=== PATIENT | female | born 1945 | race Caucasian/White ===

== ENCOUNTER 2018-06-16 19:10 | Emergency (ER) | payer MEDICARE, BC ==
[2018-06-16] MEDS ORDERED: Bacitracin Oint 1 GM U/D Packet TOP ONE (19:32)
[2018-06-16] MEDS ORDERED: Bacitracin Oint 1 GM U/D Packet ONE (19:34)
--- NOTE | 2018-06-16 20:41 | EDM.PDOC ---
ED HPI GENERAL MEDICAL PROBLEM - General Chief Complaint: ENT Problem Stated Complaint: BLOODY NOSE Time Seen by Provider: 06/16/18 19:25 Source of Information: Reports: Patient, RN Notes Reviewed History Limitations: Reports: No Limitations - History of Present Illness INITIAL COMMENTS - FREE TEXT/NARRATIVE: Brought by her Chief complaint Left-sided nosebleed History of present illness 72-year-old female on Coumadin for pulmonary embolism Left-sided nosebleed for several hours Unable to control at home - Related Data Allergies Allergy/AdvReac Type Severity Reaction Status Date / Time codeine Allergy Chest Pain Verified 06/16/18 20:26 nitrofurantoin Allergy Hives Verified 06/16/18 20:26 [From Macrodantin] Sulfa (Sulfonamide Allergy Hives Verified 06/16/18 20:26 Antibiotics) Past Medical History HEENT History: Reports: Cataract, Glaucoma, Retinal Detachment Cardiovascular History: Reports: High Cholesterol, Hypertension Respiratory History: Reports: Asthma, COPD Gastrointestinal History: Reports: GERD Genitourinary History: Reports: Chronic Renal Insuffiency [employer] History: Reports: Musculoskeletal History: Reports: Arthritis, Osteoarthritis Psychiatric History: Reports: Anxiety, Depression Endocrine/Metabolic History: Reports: Other (See Below) Other Endocrine/Metabolic History: graves dx Hematologic History: Reports: Anticoagulation Therapy Oncologic (Cancer) History: Reports: Other (See Below) Other Oncologic History: skin - Past Surgical History HEENT Surgical History: Reports: Cataract Surgery, Detached Retina, Eye Surgery , Laser Surgery, Naso-Sinus Surgery, Retinal Respiratory Surgical History: Reports: Lung Resection Female Surgical History: Reports: Tubal Ligation Neurological Surgical History: Reports: Lumbar Spine, Scoliosis ED ROS ENT - Review of Systems Review Of Systems: ROS reveals no pertinent complaints other than HPI. HEENT: Reports: Nosebleed, Other (Postnasal clot). Denies: Eye Pain, Rhinitis, Throat Pain ED EXAM, ENT - Physical Exam Exam: See Below Exam Limited By: No Limitations General Appearance: Alert, Anxious (Fairy), Moderate Distress, Other (Elevated blood pressure) Eye Exam: Bilateral Eye: Normal Inspection Ears: Normal External Exam, Hearing Grossly Normal Nose: Active Bleeding (Left-sided). No: Nasal Deformity, Nasal Swelling, Septal Perforation Mouth/Throat: Normal Gums, Normal Oropharynx, Normal Teeth, Other (Postnasal clot) Head: Atraumatic Neck: Normal Inspection. No: Lymphadenopathy (R), Lymphadenopathy (L) Respiratory/Chest: No Respiratory Distress, No Accessory Muscle Use Cardiovascular: Normal Peripheral Pulses, Regular Rate, Rhythm, Other ( Significant hypertension) Neurological: Alert, Oriented Psychiatric: Anxious Skin: Warm, Dry, Intact, Normal Color, No Rash ED ENT PROCEDURES - Epistaxis Procedure Indication: Epistaxis Recent anticoagulants/antiplatlets: Yes Uncontrolled HTN: No Recent septal/nasal surgery: No Site of bleeding: Left Nare, Anterior Clearing of clots: Suction Anterior Packing: Nasal Tampon (Using bacitracin for lubricant) Complications: No Complication Description: Minimal bleeding from the right side which soon stopped without further treatment Course - Vital Signs Last Recorded V/S: Last Vital Signs Temp 35.9 C 06/16/18 19:21 Pulse 63 06/16/18 19:21 Resp 20 06/16/18 19:21 BP 198/75 H 06/16/18 19:21 Pulse Ox 94 L 06/16/18 19:21 - Orders/Labs/Meds Meds: Medications Discontinued Medications Generic Name Dose Route Start Last Admin Trade Name Estephanie PRN Reason Stop Dose Admin Bacitracin 2 dose 06/16/18 19:32 06/16/18 20:00 Bacitracin Oint 1 Gm TOP 06/16/18 19:33 2 dose ONETIME ONE Administration Bacitracin Confirm 06/16/18 19:34 06/16/18 20:31 Bacitracin Oint 1 Gm Administered 06/16/18 19:35 Not Given Dose 2 dose .ROUTE .STK-MED ONE - Re-Assessments/Exams Free Text/Narrative Re-Assessment/Exam: 06/16/18 20:40 72-year-old female on Coumadin with left-sided nosebleed for several hours Treated successfully with nasal sponge, see procedure note 06/16/18 20:45 Departure - Departure Time of Disposition: 20:40 Disposition: Home, Self-Care 01 Condition: Good Clinical Impression: Epistaxis - Discharge Information Instructions: Nosebleed, Adult Referrals: PCP,None [Primary Care Provider] - Forms: ED Department Discharge Additional Instructions: Please return to the clinic in 3-4 days to have the nasal sponge removed Return to emergency if you have recurrent bleeding that you cannot control at home
== END 2018-06-16 20:55 | disposition home or self-care (01) ==
LOC: JP.ED 19:10
DX: R04.0 Epistaxis (principal); I12.9 Hypertensive chronic kidney disease with stage 1 through stage 4 chronic kidney disease, or unspecified chronic kidney disease; N18.9 Chronic kidney disease, unspecified; F41.9 Anxiety disorder, unspecified; F32.9 Major depressive disorder, single episode, unspecified; Z88.5 Allergy status to narcotic agent; Z88.2 Allergy status to sulfonamides; Z88.8 Allergy status to other drugs, medicaments and biological substances
CPT/HCPCS: 30901; 99283-25

== ENCOUNTER 2019-08-26 20:51 | Emergency (ER) | payer MEDICARE, BC ==
--- NOTE | 2019-08-26 22:27 | EDM.PDOC ---
ED HPI GENERAL MEDICAL PROBLEM - General Chief Complaint: Cardiovascular Problem Stated Complaint: CHEST PAIN, HIGH BP, UPPER BACK PAIN Time Seen by Provider: 08/26/19 22:25 Source of Information: Reports: Patient History Limitations: Reports: No Limitations - History of Present Illness INITIAL COMMENTS - FREE TEXT/NARRATIVE: pt arrived with pain in the shoulders and he felt like her bp was up. She took her bp and it was over 200 systolic. Onset: Today Duration: Hour(s): Location: Reports: Generalized Associated Symptoms: Reports: Other (pt had a markedly elevated bp. ) - Related Data Allergies Allergy/AdvReac Type Severity Reaction Status Date / Time codeine Allergy Chest Pain Verified 06/16/18 20:26 nitrofurantoin Allergy Hives Verified 06/16/18 20:26 [From Macrodantin] Sulfa (Sulfonamide Allergy Hives Verified 06/16/18 20:26 Antibiotics) Home Meds: Home Meds ALPRAZolam [Xanax] 0.25 mg PO QID 06/16/18 [History] B2/Vit A,C & E/Lut/Zeaxanth/Mn [Icaps] 1 each PO DAILY 06/16/18 [History] Bimatoprost [LUMIGAN 0.01% Ophth Soln] 1 drop EYEBOTH BID 06/16/18 [History] Gabapentin [Neurontin] 300 mg PO BEDTIME 06/16/18 [History] Latanoprost [Xalatan] 2 drop EYEBOTH BEDTIME 06/16/18 [History] Levothyroxine [Synthroid] 88 mcg PO ACBREAKFAST 06/16/18 [History] Omeprazole 20 mg PO DAILY 06/16/18 [History] Venlafaxine [Effexor XR] 75 mg PO DAILY 06/16/18 [History] Warfarin [Coumadin] 5 mg PO DAILY 06/16/18 [History] Zolpidem Tartrate [Ambien] 10 mg PO BEDTIME 06/16/18 [History] atorvaSTATin [Lipitor] 20 mg PO BEDTIME 06/16/18 [History] traMADol [Ultram] 50 - 100 mg PO BID 06/16/18 [History] Carvedilol 6.25 mg PO DAILY 08/26/19 [History] Lisinopril 20 mg PO BID 08/26/19 [History] Past Medical History HEENT History: Reports: Cataract, Glaucoma, Retinal Detachment Cardiovascular History: Reports: High Cholesterol, Hypertension Respiratory History: Reports: Asthma, COPD Gastrointestinal History: Reports: GERD Genitourinary History: Reports: Chronic Renal Insuffiency [employer] History: Reports: Musculoskeletal History: Reports: Arthritis, Osteoarthritis Psychiatric History: Reports: Anxiety, Depression Endocrine/Metabolic History: Reports: Other (See Below) Other Endocrine/Metabolic History: graves dx Hematologic History: Reports: Anticoagulation Therapy Oncologic (Cancer) History: Reports: Other (See Below) Other Oncologic History: skin - Past Surgical History HEENT Surgical History: Reports: Cataract Surgery, Detached Retina, Eye Surgery , Laser Surgery, Naso-Sinus Surgery, Retinal Respiratory Surgical History: Reports: Lung Resection Female Surgical History: Reports: Tubal Ligation Neurological Surgical History: Reports: Lumbar Spine, Scoliosis Social & Family History - Tobacco Use Smoking Status *Q: Former Smoker Used Tobacco, but Quit: Yes Month/Year Tobacco Last Used: 2005 - Caffeine Use Caffeine Use: Reports: Coffee Caffeine Use Comment: 2 cups per day - Recreational Drug Use Recreational Drug Use: No ED ROS GENERAL - Review of Systems Review Of Systems: See Below Constitutional: Reports: No Symptoms HEENT: Reports: No Symptoms Respiratory: Reports: Shortness of Breath Cardiovascular: Reports: Blood Pressure Problem Endocrine: Reports: No Symptoms GI/Abdominal: Reports: No Symptoms : Reports: No Symptoms Musculoskeletal: Reports: No Symptoms Skin: Reports: No Symptoms Neurological: Reports: No Symptoms ED EXAM, GENERAL - Physical Exam Exam: See Below Free Text/Narrative:: pt arrived with pain in the shoulders and feeling like her bp is elevated. Exam Limited By: No Limitations General Appearance: Alert, Anxious, Moderate Distress Ears: Normal TMs Nose: Normal Inspection Throat/Mouth: Normal Inspection Head: Atraumatic Neck: Normal Inspection Respiratory/Chest: No Respiratory Distress Cardiovascular: Regular Rate, Rhythm, Other ( bp is elevated. ) GI/Abdominal: Soft, Non-Tender (Female) Exam: Deferred Rectal (Female) Exam: Deferred Back Exam: Normal Inspection Extremities: Normal Inspection Neurological: Alert, Oriented, Normal Cognition Psychiatric: Normal Affect Course - Vital Signs Last Recorded V/S: Last Vital Signs Temp 35.9 C 08/26/19 21:18 Pulse 52 L 08/26/19 22:00 Resp 10 L 08/26/19 22:00 BP 160/62 H 08/26/19 22:00 Pulse Ox 94 L 08/26/19 22:00 - Orders/Labs/Meds Orders: Active Orders 24 hr Category Date Time Status EKG Documentation Completion [RC] ASDIRECTED Care 08/26/19 21:29 Active EKG 12 Lead [EK] Routine Ther 08/26/19 21:29 Ordered Labs: Laboratory Tests 08/26/19 08/26/19 08/26/19 Range/Units 21:24 21:24 21:24 WBC 6.5 (4.5-11.0) K/uL RBC 3.87 (3.30-5.50) M/uL Hgb 11.6 L (12.0-15.0) g/dL Hct 35.7 L (36.0-48.0) % MCV 92 (80-98) fL MCH 30 (27-31) pg MCHC 33 (32-36) % Plt Count 219 (150-400) K/uL Neut % (Auto) 34 L (36-66) % Lymph % (Auto) 50 H (24-44) % [place] % (Auto) 8 H (2-6) % Eos % (Auto) 8 H (2-4) % Baso % (Auto) 0 (0-1) % PT 23.2 H (9.5-12.0) sec INR 2.25 H (0.80-1.20) Sodium 140 (140-148) mmol/L Potassium 3.9 (3.6-5.2) mmol/L Chloride 105 (100-108) mmol/L Carbon Dioxide 29 (21-32) mmol/L Anion Gap 5.9 (5.0-14.0) mmol/L BUN 15 (7-18) mg/dL Creatinine 1.0 (0.6-1.0) mg/dL Est Cr Clr Drug Dosing 41.97 mL/min Estimated GFR (MDRD) 54 L (>60) Glucose 87 (74-106) mg/dL Calcium 8.4 L (8.5-10.1) mg/dL Total Bilirubin 0.6 (0.2-1.0) mg/dL AST 15 (15-37) U/L ALT 21 (12-78) U/L Alkaline Phosphatase 68 (46-116) U/L NT-Pro-B Natriuret Pep (5-450) pg/mL Total Protein 6.1 L (6.4-8.2) g/dL Albumin 3.5 (3.4-5.0) g/dL Globulin 2.6 (2.3-3.5) g/dL Albumin/Globulin Ratio 1.3 (1.2-2.2) Urine Color (YELLOW) Urine Appearance (CLEAR) Urine pH (5.0-8.0) Ur Specific [place] (1.008-1.030) Urine Protein (NEGATIVE) mg/dL Urine Glucose (UA) (NEGATIVE) mg/dL Urine Ketones (NEGATIVE) mg/dL Urine Occult Blood (NEGATIVE) Urine Nitrite (NEGATIVE) Urine Bilirubin (NEGATIVE) Urine Urobilinogen (0.2-1.0) EU/dL Ur Leukocyte Esterase (NEGATIVE) Urine RBC (0-5) Urine WBC (0-5) Ur Epithelial Cells Amorphous Sediment Urine Bacteria Urine Mucus 08/26/19 08/26/19 Range/Units 21:30 21:43 WBC (4.5-11.0) K/uL RBC (3.30-5.50) M/uL Hgb (12.0-15.0) g/dL Hct (36.0-48.0) % MCV (80-98) fL MCH (27-31) pg MCHC (32-36) % Plt Count (150-400) K/uL Neut % (Auto) (36-66) % Lymph % (Auto) (24-44) % [place] % (Auto) (2-6) % Eos % (Auto) (2-4) % Baso % (Auto) (0-1) % PT (9.5-12.0) sec INR (0.80-1.20) Sodium (140-148) mmol/L Potassium (3.6-5.2) mmol/L Chloride (100-108) mmol/L Carbon Dioxide (21-32) mmol/L Anion Gap (5.0-14.0) mmol/L BUN (7-18) mg/dL Creatinine (0.6-1.0) mg/dL Est Cr Clr Drug Dosing mL/min Estimated GFR (MDRD) (>60) Glucose (74-106) mg/dL Calcium (8.5-10.1) mg/dL Total Bilirubin (0.2-1.0) mg/dL AST (15-37) U/L ALT (12-78) U/L Alkaline Phosphatase (46-116) U/L NT-Pro-B Natriuret Pep 130 (5-450) pg/mL Total Protein (6.4-8.2) g/dL Albumin (3.4-5.0) g/dL Globulin (2.3-3.5) g/dL Albumin/Globulin Ratio (1.2-2.2) Urine Color Yellow (YELLOW) Urine Appearance Clear (CLEAR) Urine pH 7.0 (5.0-8.0) Ur Specific [place] 1.020 (1.008-1.030) Urine Protein Negative (NEGATIVE) mg/dL Urine Glucose (UA) Negative (NEGATIVE) mg/dL Urine Ketones Negative (NEGATIVE) mg/dL Urine Occult Blood Trace-lysed H (NEGATIVE) Urine Nitrite Negative (NEGATIVE) Urine Bilirubin Negative (NEGATIVE) Urine Urobilinogen 0.2 (0.2-1.0) EU/dL Ur Leukocyte Esterase Negative (NEGATIVE) Urine RBC 0-5 (0-5) Urine WBC 0-5 (0-5) Ur Epithelial Cells Few Amorphous Sediment Few Urine Bacteria Rare Urine Mucus Few - Re-Assessments/Exams Free Text/Narrative Re-Assessment/Exam: 08/26/19 22:35 pt arrived with pain in the shoulders and her bp was elevated. She found her bp was over 200. She arrived here after she took her lisinopril early and she toke a xanax that she uses for her bp. and anxiety. Her bp was over 200 on arrival but over the next hour her bp did come down nicely . She is feeling back to normal. She has normal lab work. Departure - Departure Time of Disposition: 22:25 Disposition: Home, Self-Care 01 Condition: Fair Clinical Impression: Hypertension Referrals: PCP,None [Primary Care Provider] - Forms: ED Department Discharge Care Plan Goals: bp elevation increase lisinopril to 1 and 1/2 each morning and one at nite. continue other meds the same. - My Orders Last 24 Hours: My Active Orders 08/26/19 21:29 EKG Documentation Completion [RC] ASDIRECTED EKG 12 Lead [EK] Routine - Assessment/Plan Last 24 Hours: My Active Orders 08/26/19 21:29 EKG Documentation Completion [RC] ASDIRECTED EKG 12 Lead [EK] Routine
== END 2019-08-26 22:56 | disposition home or self-care (01) ==
LOC: JP.ED 20:51
DX: I12.0 Hypertensive chronic kidney disease with stage 5 chronic kidney disease or end stage renal disease (principal); N18.9 Chronic kidney disease, unspecified; E78.00 Pure hypercholesterolemia, unspecified; K21.9 Gastro-esophageal reflux disease without esophagitis; M19.90 Unspecified osteoarthritis, unspecified site; F41.9 Anxiety disorder, unspecified; F32.9 Major depressive disorder, single episode, unspecified; Z98.51 Tubal ligation status; Z88.8 Allergy status to other drugs, medicaments and biological substances; Z88.5 Allergy status to narcotic agent; Z88.2 Allergy status to sulfonamides; Z79.01 Long term (current) use of anticoagulants; Z79.899 Other long term (current) drug therapy; Z87.891 Personal history of nicotine dependence
CPT/HCPCS: 36415; 80053; 81001; 83880; 85025; 85610; 93005; 99283; 99284-25